=== PATIENT | female | born 1940 | race African-American/Black ===

== ENCOUNTER 2016-12-11 17:56 | Emergency (ER) | payer SELFPAY ==
[~2016-12-11] VITALS: Ht 154.9 cm; Wt 58.0 kg
[~2016-12-11 17:56] MED LIST: ATOR10TA65 PO; ENAL5TAB PO; SYN75 PO; TIMO15DR16 BOTH EYES
[2016-12-11 18:31] VITALS: Ht 154.9 cm; Wt 58.0 kg
== END 2016-12-12 00:15 | disposition left against medical advice (07) ==
LOC: E/R 17:56
DX: Z53.21 Procedure and treatment not carried out due to patient leaving prior to being seen by health care provider (principal)